=== PATIENT | female | born 1970 | race Caucasian/White ===

== ENCOUNTER 2019-07-03 05:15 | Observation (INO) ==
--- NOTE | 2019-06-24 14:45 | PAT Medication Instructions ---
Medication Instructions Date of Service June 24, 2019 Home Medications Medication Instructions Recorded cephalexin 500 mg capsule 500 mg PO TID 21 Days #63 cap 06/18/19 buprenorphine 12 mg-naloxone 3 mg sublingual film 1 ea SL DAILY venlafaxine 75 mg capsule,extended release 24 hr 75 mg PO DAILY cephalexin 500 mg capsule 500 mg PO TID Continue as directed buprenorphine 12 mg-naloxone 3 mg sublingual film 1 ea SL DAILY venlafaxine 75 mg capsule,extended release 24 hr 75 mg PO DAILY cephalexin 500 mg capsule 500 mg PO TID Other Notes If you have any questions please call us at [phone] or [phone] or [phone] or [phone]
--- NOTE | 2019-06-25 09:03 | Anesthesiology Consultation ---
Date of Service June 25, 2019 Assessment & Plan (1) Encounter for pre-operative examination: - Check test AM DOS Chart Review Chart Review: Acceptable Risk for Surgery and Patient seen in Pre Admission Te sting Teaching & Discussion Pre-Anesthesia Teaching/Discussion Notes: Instructed NPO after midnight before surgery,except medications with 15 cc of water. Medication instructions provided according to the PAT guidelines. History Surgery Operation Date: 07/03/19 07:30 Proposed Procedures p Bilateral Nipple-Sparring Breast Mastectomies with Bilateral [place] Lymph Node Biopsy - Chevy Ruiz DO s Bilateral First-Stage Immediate Breast Reconstruction with Tissue Expanders and Acellular Dermal Matrix - Radha Oliver MD Height/Weight Height: 5 ft 6 in Weight: 64.9 kg Allergies Allergy/AdvReac Type Severity Reaction Status Date / Time No Known Drug Allergies Allergy Verified 06/17/19 15:27 Medications Home Medications Medication Instructions Recorded Confirmed Last Taken buprenorphine 12 mg-naloxone 3 mg 1 ea SL DAILY 04/16/19 06/17/19 Unknown sublingual film venlafaxine 75 mg capsule,extended 75 mg PO DAILY 04/16/19 06/17/19 Unknown release 24 hr cephalexin 500 mg capsule 500 mg PO TID 21 Days #63 cap 06/18/19 06/18/19 Unknown Past Medical History Medical History Breast cancer left Depression Exercise / Class Metabolic Activity II 4-5 Yardwork/Stairs/Walk up hill (ONE FLIGHT OF STAIRS (NO CHEST PAIN/NO SOB)) Past Family History Family History Father Prostate cancer Heart disease Grandfather (Maternal) Family history of diabetes mellitus Past Surgical History Surgical History History of breast biopsy History of in vitro fertilization Past Anesthesia History No Hx of Anesthesia Complications and No Family Hx of Anesthesia Complications History of PONV No Hx of PONV and No Hx of Motion Sickness Social History Smoking Status: Never smoker Do You Dip or Chew Tobacco: No Hx Alcohol Use: Yes Alcohol type: wine alcohol intake frequency: a few times a month Hx Substance Use: Yes (on Suboxone daily) substance use type: former substance user and opiates Review of Systems Patient denies chest pain, shortness of breath, dyspnea on exertion, cough, wheezing, palpitations. Physical Exam Vital Signs VITALS BP 135/76 P 87 TEMP 98.4 SP02 100%RA RESP 16 PHYSICAL Full neck and c-spine range of motion. Full TMJ range of motion. TMD 3 finger breaths Mallampati Score 3 Dentition: missing side tooth, crown on upper front Lungs: clear throughout to auscultation Cardiac: regular rate and rhythm, no murmurs noted Spine: normal Extremities: no edema Testing Laboratory Results 06/25/19 09:37 06/25/19 09:37 PT 10.3 Seconds (9.0-12.0) 06/25/19 09:37 INR 1.0 (0.9-1.1) 06/25/19 09:37 APTT 24.8 Seconds (21.0-31.0) 06/25/19 09:37 Electrocardiogram Date: 06/25/19 Findings: + NSR @ (89)
[2019-06-25 11:10] LABS: Basophils # (auto) 0.09 K/uL (0-0.2); Eosinophils % (auto) 4.5 %; Hematocrit (blood only) 41.8 % (37-47); Immature Granulocytes # (auto) 0.01 K/uL (0.00-0.02); Immature Granulocytes % (auto) 0.2 %; Lymphocytes # (auto) 0.88 K/uL (1.2-3.4); Lymphocytes % (auto) 19.7 %; Mean Corpuscular Hgb Conc 33.5 g/dL (32-36); Mean Corpuscular Volume 95.7 fL (80-100); Mean Platelet Volume 10.6 fL (7.4-10.4); Monocytes # (auto) 0.22 K/uL (0.11-0.59); Monocytes % (auto) 4.9 %; Neutrophils # (auto) 3.07 K/uL (1.4-6.5); Neutrophils % (auto) 68.7 %; Platelet Count 234 K/uL (130-400); RDW Coefficient of Variation 12.4 % (11.5-14.5); Red Blood Count 4.37 M/uL (4.2-5.4); White Blood Count 4.47 K/uL (4.8-10.8)
[2019-06-25 11:25] LABS: Partial Thromboplastin Ratio 0.9; Partial Thromboplastin Time 24.8 Seconds (21.0-31.0); Prothrombin Time 10.3 Seconds (9.0-12.0)
[2019-06-25 11:26] LABS: BUN Creatinine Ratio 12.5 (10-20); Calcium 8.5 mg/dl (8.5-10.1); Creatinine Clr Calc Pharmacy 81.2 ml/min; Est GFR (African American) 100.9; Est GFR (Non-African American) 87.1; Potassium 4.6 mmol/L (3.5-5.1)
[2019-07-03] MEDS ORDERED: LR 15ML/HR IV SCH (06:00)
[2019-07-03] MEDS ORDERED: LR 500ML BOLUS IV SCH (06:00)
[2019-07-03] MEDS ORDERED: CEFAZOLIN 2000MG 2,000 MG/15 ML SYR IV SCH (06:00)
[2019-07-03] MEDS ORDERED: ROCURONIUM BROMIDE 10 MG/ML 5 ML VIAL ONE ×3 (06:29→11:43)
[2019-07-03] MEDS ORDERED: PROPOFOL IV EMULSION 10 MG/ML 20 ML VIAL IV ONE (06:29)
[2019-07-03] MEDS ORDERED: SUCCINYLCHOLINE 100MG/5ML SYR ONE (06:29)
[2019-07-03] MEDS ORDERED: MIDAZOLAM HCL 1 MG/ML 2ML VIAL ONE ×3 (06:30→10:02)
[2019-07-03] MEDS ORDERED: fentaNYL citrate 100 MCG/2 ML VIAL ONE (06:30)
[2019-07-03] MEDS ORDERED: BUPIVACAINE/EPINEPHRINE 0.25% 1:200,000 30 ML VIAL ONE (06:37)
[2019-07-03] MEDS ORDERED: VANCOMYCIN HCL 1000MG/20ML VIAL ONE (06:50)
--- NOTE | 2019-07-03 07:02 | History & Physical Bridge Note ---
Date of Service July 03, 2019 History & Physical Bridge Note I have examined the patient, reviewed the History & Physical and in the interval since the performance of the History & Physical I have noted the following changes of clinical significance: no changes noted
[2019-07-03] MEDS ORDERED: LIDOCAINE/EPINEPHRINE 1% 20 ML VIAL ONE (07:05)
[2019-07-03] MEDS ORDERED: BUPIVACAINE 0.25% 30 ML VIAL ONE (07:06)
[2019-07-03] MEDS ORDERED: CEFAZOLIN 250 MG/ML 1 GM VIAL ONE (07:07)
[2019-07-03] MEDS ORDERED: BACITRACIN INJ 50,000 UNIT VIAL ONE (07:07)
[2019-07-03] MEDS ORDERED: GENTAMICIN SULFATE 40 MG/ML 2 ML VIAL ONE (07:07)
[2019-07-03] MEDS ORDERED: ATROPINE SULFATE 0.1 MG/ML 10ML SYR IV PRN (07:08)
[2019-07-03] MEDS ORDERED: ONDANSETRON INJ 2 MG/ML 2 ML VIAL IV PRN ×2 (07:08→15:50)
[2019-07-03] MEDS ORDERED: HYDROmorphone INJ 2 MG/ML SYR/VIAL IV PRN (07:08)
[2019-07-03] MEDS ORDERED: ePHEDrine sulfate 50 MG/ML AMP IV PRN (07:08)
[2019-07-03] MEDS ORDERED: ISOSULFAN BLUE 10 MG/ML VIAL 5 ML ONE (07:14)
[2019-07-03] MEDS ORDERED: EpINEphrine HCL INJ 1 MG/ML 1ML SYRINGE ONE (07:15)
[2019-07-03] MEDS ORDERED: BUPIVACAINE 0.5 % 5 MG/1 ML MPF 30ML VIAL ONE (07:15)
--- NOTE | 2019-07-03 07:23 | History & Physical Report ---
Date of Service July 03, 2019 Assessment & Plan (1) Breast cancer: Again a long discussion was had regarding the upcoming procedure that we are recommending. We reviewed all the risks once again. Answered all their questions. We will proceed today with bilateral nipple sparing mastectomies and bilateral sentinel lymph node biopsies with immediate placement of tissue expanders by Dr. Oliver. History of Present Illness Primary Care Provider: NO PCP This is a 48-year-old female who was recently diagnosed with breast cancer as well as DCIS. She originally also had an abnormality on her left breast however follow-up imaging failed to reveal this so biopsy was never performed. After extensive discussions between her myself and her plastic surgeon Dr. Oliver we have decided to proceed with bilateral nipple sparing mastectomy, bilateral sentinel lymph node biopsy, and breast reconstruction with tissue expanders placed at the time of the mastectomies. Allergies Allergy/AdvReac Type Severity Reaction Status Date / Time No Known Drug Allergies Allergy Verified 07/03/19 05:41 Home Medications Home Medications Medication Instructions Recorded Confirmed Type buprenorphine 12 mg-naloxone 3 mg 1 ea SL DAILY 04/16/19 07/03/19 History sublingual film venlafaxine 75 mg capsule,extended 75 mg PO DAILY 04/16/19 07/03/19 History release 24 hr cephalexin 500 mg capsule 500 mg PO TID 21 Days #63 cap 06/18/19 07/03/19 Rx Past Med/Surg History Medical History Breast cancer left Depression Surgical History History of breast biopsy History of in vitro fertilization Family History Father Prostate cancer Heart disease Grandfather (Maternal) Family history of diabetes mellitus Social History Preferred Language: Yi Communication Ability: Effective Fuel Cell Designer Required: No Beliefs That Will Affect Care: None marital status: Current Living Situation: Spouse current occupational status: employed current occupation: assoc professor at [employer] Other Information That Helps Us Care for You: No Feels Safe at Home: Yes Safety Concerns: Feels Safe At This Time Smoking Status: Never smoker Do You Dip or Chew Tobacco: No ; Second Hand Exposure: No ; Hx Alcohol Use: Yes Alcohol type: wine Alcohol Intake Frequency: Weekly Hx Substance Use: Yes substance use type: former substance user and opiates Review of Systems All systems reviewed & are unremarkable except as noted in HPI & below Physical Exam Constitutional: WD/WN, vitals as above no acute distress and not ill appearing Eyes: PERRL, conjunctivae normal, anicteric sclerae EOM intact bilaterally ENMT: external ear and nose normal, oropharynx normal Ears: no hearing impairment Neck: trachea midline, no thyromegaly Respiratory: normal respiratory effort; no respiratory distress and does not use accessory muscles Cardiovascular: Rate/Rhythm: regular rate and regular rhythm Chest (Breasts): Additional Comments: No palpable abnormalities in either breast. Biopsy site well-healed. No sign of infection. Gastrointestinal (Abdomen): normal bowel sounds, soft, nontender, no hepatosplenomegaly Skin: no rashes, warm and dry Psychiatric: Orientation: alert, oriented x 3 and cooperative Results & Data Vital Signs (Past 12 Hours) Vital Signs Temp Pulse Resp BP Pulse Ox 07/03/19 05:46 37.1 C 105 H 18 139/78 100
[2019-07-03] MEDS ORDERED: DEXAMETHASONE SOD INJ 4 MG/ML VIAL ONE (08:10)
[2019-07-03] MEDS ORDERED: ACETAMINOPHEN 1000 MG/100 ML IV IV ONE (08:23)
[2019-07-03] MEDS ORDERED: KETAMINE HCL INJ 50 MG/ML 10 ML VIAL ONE (08:27)
--- NOTE | 2019-07-03 10:51 | Operative Report ---
PG Post Operative Report Pre & Post Diagnosis Operation Date: 07/03/19 07:30 Pre-Op Diagnosis: Breast Cancer Post-Op Diagnosis: Breast Cancer I identified the patient and participated in the time-out.: Yes Procedure Operation Date: 07/03/19 07:30 Actual Procedures p Bilateral Nipple-Sparing Breast Mastectomies with Bilateral [place] Lymph Node Biopsy(Bilateral) - DO donell Goldman Bilateral First-Stage Immediate Breast Reconstruction with Tissue Expanders and Acellular Dermal Matrix - Radha Oliver MD Surgeon Chevy Ruiz DO Statement Clerks Manager nina Miranda Estimated Blood Loss 50 Findings Consistent with Post-Op Diagnosis Specimens 1. right breast 2. left breast 3. right sentinel lymph nodes 4. left sentinel lymph nodes. Description of Procedure A day prior to the procedure the patient had been to nuclear medicine where she was injected at her bilateral nipple areolar complexes with radionucleotide. The day of the surgery the patient was identified and brought to the operating room and placed in supine position with both arms extended. After successful intubation a Scherer catheter was placed. The bilateral chest wall breast axilla upper arm and lower neck were all sterilely prepped and draped in usual fashion. I began on the noncancer side/right breast. I made a curvilinear incision as marked by Dr. Oliver just above the inframammary fold with a 10 blade scalpel. Skin flaps were created in all directions. I used cautery for the majority of my dissection. After creating a flap superiorly and inferiorly as well as medially I developed the plane between the pectoralis muscle and the breast itself leaving pectoralis fascia in place. We continued this superiorly to the clavicle. Once I detached it from the nipple areolar complex I continued to work medial to lateral until I had the entire breast out including the axillary tail. Any small bleeding points were controlled using either electrocautery, 3- 0 Vicryl stick ties or hemoclips. Once I had the entire breast removed in 1 piece I marked it such that one long stitch was lateral 2 short stitches were superior and 2 long stitches were posterior. I then thoroughly irrigated the wound. There was adequate hemostasis. Using the neoprobe device I was able to identify the right sentinel lymph node. I was not able to reach it from the inframammary incision so I therefore made a new axillary incision with a fresh blade. Wheat Dunn retractor was used to help with exposure and I continued to use traction/ countertraction and cautery to dissect down through the axilla. I was able to locate what I suspect was 2 separtate sentinel lymph nodes. I was able to use cautery and hemoclips to remove them in totality. They were in fact "hot nodes" once we removed them from the body. Once they were removed we did not identify any additional background noise. We then thoroughly irrigated both wounds and packed them with moist towels. We then changed our gloves. Our attention then turned to the left breast. We used the exact same technique. I again I used a fresh blade to create an incision just above the inframammary fold as previously marked by Dr. Oliver. Again I created skin flaps superiorly medially laterally and inferiorly. I began by dissecting medial to the medial side of the breast tissue and then developed a plane between the breast and the pectoralis muscle again leaving fascia behind. I continued to dissect medial to lateral and inferior to superior until I was up to the clavicle superiorly and the lateral margin/anterior margin of the latissimus dorsi laterally. Again once I had all the breast tissue removed in 1 piece including the axillary tail and I marked it such that one long stitch was lateral 2 short stitches were superior and 2 long stitches were posterior. Again any bleeding points were controlled using cautery and 3-0 Vicryl ties or hemoclips. Once this was completed again I was unable to reach the sentinel lymph node from the inframammary incision so I created a new left axillary incision with a fresh blade. Again a Wheat Dunn retractor was used to help exposure. Once we identified the "hot" lymph nodes we were able to excise them by hemoclipping the pedicle and removing them. Once out of the body again they were in fact the "hot" nodes. I believe again there were 2 separate nodes. There was no background noise once these were removed. Thorough irrigation of the axilla was also performed. Thorough irrigation of both incisions was performed and there was adequate hemostasis. Again both wounds were packed with wet sterile towels. This completed our portion of the procedure. Please see Dr. Oliver's dictation from here going forward. My physician clinical project assistant was present for the entire case. He helped prep the patient. He was instrumental in retraction and exposure for my dissection. I attest to the content of the Intraoperative Record and any orders documented therein. Any exceptions are noted below.
[2019-07-03] MEDS ORDERED: GLYCOPYRROLATE 0.2 MG/ML VIAL ONE (12:47)
[2019-07-03] MEDS ORDERED: HYDROmorphone INJ 2 MG/ML SYR/VIAL ONE (12:47)
[2019-07-03] MEDS ORDERED: NEOSTIGMINE METHYLSULFATE 5 MG/5 ML SYR ONE (12:47)
[2019-07-03] MEDS ORDERED: ONDANSETRON INJ 2 MG/ML 2 ML VIAL ONE (12:47)
--- NOTE | 2019-07-03 13:52 | Post Operative Brief Note ---
Immediate Post Op Note v1 Date of Surgery July 03, 2019 Pre & Post Diagnosis Operation Date: 07/03/19 07:30 Pre-Op Diagnosis: Breast Cancer Post-Op Diagnosis: Breast Cancer I identified the patient and participated in the time-out.: Yes Procedure Operation Date: 07/03/19 07:30 Actual Procedures p Bilateral Nipple-Sparing Breast Mastectomies with Bilateral [place] Lymph Node Biopsy(Bilateral) - DO donell Goldman Bilateral First-Stage Immediate Breast Reconstruction with Tissue Expanders and Acellular Dermal Matrix(Bilateral) - Radha Oliver MD Surgeon Radha Oliver MD Hand Driller Sharifa Arenas pa-c Estimated Blood Loss 15 Findings Consistent with Post-Op Diagnosis Specimens additional right breast tissue to pathology Drains Scherer Catheter and Zackery-De Jesus Drain (15french round x 2) Anesthesia Type General Complications none Disposition Disposition: Recovery Room
[2019-07-03] MEDS ORDERED: ACETAMINOPHEN 65 ML IV PRN (14:01)
--- NOTE | 2019-07-03 14:23 | Operative Report ---
PG Post Operative Report Pre & Post Diagnosis Operation Date: 07/03/19 07:30 Pre-Op Diagnosis: Breast Cancer Post-Op Diagnosis: Breast Cancer I identified the patient and participated in the time-out.: Yes Procedure Operation Date: 07/03/19 07:30 Actual Procedures p Bilateral Nipple-Sparing Breast Mastectomies with Bilateral [place] Lymph Node Biopsy(Bilateral) - DO donell Goldman Bilateral First-Stage Immediate Breast Reconstruction with Tissue Expanders and Acellular Dermal Matrix(Bilateral) - Radha Oliver MD Surgeon Radha Oliver MD Large Engine Assembler Sharifa Arenas pa-c Estimated Blood Loss 15 Findings Consistent with Post-Op Diagnosis Specimens additional right breast tissue to pathology Drains [id number] Anesthesia Type General Complications none Disposition Disposition: Recovery Room Indications left breast CA, requiring bilateral mastectomy and desiring immediate breast reconstruction Description of Procedure I began with the right side. Hemostasis was achieved with electrocautery. Pectoralis major muscle was then identified and elevated via the inframammary incision. Inferior attachments of pectoralis major muscle were divided along the ribs medially to the sternum. None of the sternal attachments were dissected. The retropectoral plane was then developed using electrocautery. Hemostasis was achieved using cautery. Once adequate dissection had been performed, I then chose a piece of medium contour thick AlloDerm which was then used to create a sling for the lower pole. This was first sutured to the inframammary fold using 2-0 Vicryl U stitches. Pocket was then measured and base diameter was 11 cm. Therefore, I selected a 11 cm Allergan style smooth 133 SMVT tissue business continuity global director with fill volume 250 mL. The business continuity global director was prepared and air was aspirated out. The business continuity global director was soaked in antibiotic irrigation and antibiotic irrigation was used to irrigate the pocket. All instruments were wiped down and gloves were changed. Mobile Home Set Up Person was placed along the inframammary fold as medially as possible. Suture tabs were sutured down to underlying periosteum using a 2-0 Vicryl suture. The remainder of the business continuity global director was then enclosed using 2-0 Vicryl running suture to reapproximate the AlloDerm which had been trimmed to size and this was approximated to the pectoralis major muscle. Laterally, this was closed down using 2-0 Vicryl interrupted sutures as well. A 15-Khmer Tor drain was placed in the wound and brought out through a separate stab incision. Wound was reapproximated using 2-0 Vicryl deep dermal suture, 3-0 PDS superficial dermal suture and 3-0 Monocryl running subcuticular suture. The fill port was identified using the magnifinder and accessed using a Fourte needle. A total of 200 mL were placed prior to closure. Drain was sutured in place using 3-0 nylon. Dermabond Prineo was applied. I also performed closure of both axillary lymph node biopsy sites using 2-0 Vicryl deep dermal sutures, 3-0 PDS interrupted superficial dermal sutures, 3-0 monocryl running subcuticular suture, followed by application of dermabond. An identical procedure was performed on the left side. The drain site was dressed using Acticoat 7, dry dressing and Tegaderm. Dry dressings were placed over the incision. Procedure was tolerated well. Sharifa Arenas PA-C was present and scrubbed throughout the entire procedure and was instrumental in providing exposure during elevation of pectoralis muscle and suturing of the AlloDerm as well as filling expanders and assisting in wound closure. I attest to the content of the Intraoperative Record and any orders documented therein. Any exceptions are noted below.
[2019-07-03] MEDS ORDERED: HYDROmorphone INJ 1 MG/ML SYRINGE ONE (14:48)
--- NOTE | 2019-07-03 14:55 | Anesthesiology Progress Note ---
Date of Service July 03, 2019 Anesthesia Post Procedure Vital Signs Vital Signs: Temp Pulse Pulse Resp BP Pulse Ox 07/03/19 14:41 36.8 C 88 17 107/63 99 07/03/19 14:30 76 16 103/57 L 98 07/03/19 14:20 83 19 99/59 L 100 07/03/19 14:10 86 14 103/51 L 100 07/03/19 14:04 36.8 C 101 H 14 105/64 100 07/03/19 05:46 37.1 C 105 H 18 139/78 100 Transfer of Care Handoff Completed per policy Notes Mental Status: alert / awake / arousable Patient Amnestic to Procedure: Yes Nausea / Vomiting: adequately controlled Pain: adequately controlled Airway Patency, RR, SpO2: stable & adequate BP & HR: stable & adequate Hydration State: stable & adequate Anesthetic Complications: no major complications apparent
[2019-07-03] MEDS ORDERED: DiphenhydrAMINE HCL 50 MG/ML VIAL IV PRN (15:50)
[2019-07-03] MEDS ORDERED: PROMETHAZINE HCL 12.5 MG in SODIUM CHLORIDE 0.9% 50 ML IV PRN (15:50)
[2019-07-03] MEDS ORDERED: MoRPHine SULFATE 10 MG/ML CARP/VIAL IV PRN (15:50)
[2019-07-03] MEDS ORDERED: OXAZEPAM 10 MG CAPSULE PO PRN (15:50)
[2019-07-03] MEDS ORDERED: ACETAMINOPHEN 325 MG TAB PO PRN (15:50)
[2019-07-03] MEDS ORDERED: MoRPHine SULFATE 2 MG/ML CARP IV PRN (15:50)
[2019-07-03] MEDS: MoRPHine SULFATE 4 MG/ML 1 ML CARP\\VIAL IV PRN (16:34)
[2019-07-03] MEDS: D5W AND 1/2NSS + 20MEQ KCL 20 MEQ/1,000 ML BAG IV SCH (16:59)
[2019-07-03] MEDS: OXYCODONE/ACETAMINOPHEN 10-325 TAB PO PRN ×2 (18:17→22:27)
[2019-07-03] MEDS: CEFAZOLIN 2000MG 2,000 MG/15 ML SYR IV SCH (19:26)
[2019-07-03] MEDS ORDERED: COUGH DROP (SUGAR FREE) LOZ 24 LOZ/1 BOX BUCCAL ONE (19:35)
[2019-07-04] MEDS: CEFAZOLIN 2000MG 2,000 MG/15 ML SYR IV SCH (02:26)
[2019-07-04] MEDS: MoRPHine SULFATE 4 MG/ML 1 ML CARP\\VIAL IV PRN (02:30)
[2019-07-04 04:04] VITALS: TEMP 98.4
[2019-07-04] MEDS: OXYCODONE/ACETAMINOPHEN 10-325 TAB PO PRN (06:16)
[2019-07-04] MEDS: D5W AND 1/2NSS + 20MEQ KCL 20 MEQ/1,000 ML BAG IV SCH (06:25)
[2019-07-04 07:18] VITALS: BP 122/74; O2SAT 99
--- NOTE | 2019-07-04 08:06 | Surgery Progress Note ---
Date of Service July 04, 2019 Assessment & Plan (1) H/O mastectomy: doing well/as expected ok from my standpoint for d/c later today/tomorrow when ok with Dr. Oliver. (2) Breast cancer: Subjective pt seen. doing well. "sore" but otherwise no major complaints. Physical Exam Physical Exam: alert. nad no respiratory distress. dressings in place. Results & Data Vital Signs (Past 12 Hours) Vital Signs Temp Pulse Pulse Resp BP Pulse Ox 07/04/19 07:17 36.9 C 83 18 122/74 99 07/04/19 04:03 36.9 C 81 16 134/81 100 07/03/19 23:11 37.1 C 92 H 16 126/74 98 PG Care Time/CCT Total # of Minutes Spent Total Time Spent with Patient: Total time spent is greater than 50% in coordination of care (as documented) at patient's floor/unit and/or counseling patient:
--- NOTE | 2019-07-04 08:11 | Surgery Progress Note ---
Date of Service July 04, 2019 Assessment & Plan (1) Breast cancer: (2) H/O mastectomy: s/p bilateral nipple sparing mastectomy with immediate reconstruction using tissue expanders and acellular dermal matrix 1. doing well. OK to d/c home today. F/U in office tomorrow Subjective Patient resting comfortably with good pain control. She admits to feeling sore, but pain is controlled. She denies any nausea and is tolerating a regular diet. Physical Exam Constitutional: WD/WN, vitals as above no acute distress Skin: + incision (CDI, nipples/flap viable) drains with serosang output Results & Data Vital Signs (Past 12 Hours) Vital Signs Temp Pulse Pulse Resp BP Pulse Ox 07/04/19 07:17 36.9 C 83 18 122/74 99 07/04/19 04:03 36.9 C 81 16 134/81 100 07/03/19 23:11 37.1 C 92 H 16 126/74 98 PG Care Time/CCT Total # of Minutes Spent Total Time Spent with Patient: Total time spent is greater than 50% in coordination of care (as documented) at patient's floor/unit and/or counseling patient:
[2019-07-04] MEDS ORDERED: BUPRENORPHINE/NALOXONE 8/2 MG TAB SL SCH (09:00)
[2019-07-04] MEDS ORDERED: VENLAFAXINE HCL XR 75 MG CAPXR PO SCH (09:00)
[2019-07-04] MEDS ORDERED: MULTIVITAMIN TAB PO SCH (09:00)
[2019-07-04 09:57] VITALS: PULSE 81
--- NOTE | 2019-07-04 13:46 | Discharge Summary ---
Date of Service July 04, 2019 Admission HPI Per Admitting Provider This is a 48-year-old female who was recently diagnosed with breast cancer as well as DCIS. She originally also had an abnormality on her left breast however follow-up imaging failed to reveal this so biopsy was never performed. After extensive discussions between her myself and her plastic surgeon Dr. Oliver we have decided to proceed with bilateral nipple sparing mastectomy, bilateral sentinel lymph node biopsy, and breast reconstruction with tissue expanders placed at the time of the mastectomies. Admission Exam Per Admitting Provider see admission H&P Principal Diagnosis left breast cancer Discharge Exam Constitutional WD/WN, vitals as above no acute distress Skin + incision (CDI, nipples/flap viable) Discharge Data Allergies Allergy/AdvReac Type Severity Reaction Status Date / Time No Known Drug Allergies Allergy Verified 07/03/19 05:41 Procedures Performed Operation Date: 07/03/19 07:30 Actual Procedures p Bilateral Nipple-Sparing Breast Mastectomies with Bilateral [place] Lymph Node Biopsy(Bilateral) - Chevy Ruiz, DO s Bilateral First-Stage Immediate Breast Reconstruction with Tissue Expanders and Acellular Dermal Matrix(Bilateral) - Radha Oliver MD Ordered Studies 07/03/19 06:25 US - OR guided needle placemen Routine Hospital Course (1) Breast cancer: (2) H/O mastectomy: Patient [facility] with history of breast cancer. She was taken to the OR and underwent bilateral nipple sparing mastectomy by Dr. Ruiz with immediate breast reconstruction using tissue expanders and acellular dermal matrix with Dr. Oliver. There were no intraoperative complications. She was taken to recovery and transferred to med/surg for observation. On POD#1, she was feeling well. She was tolerating a regular diet and ambulating. On exam, her vitals were stable. Her incisions were CDI. Her drains had appropriate output. She was discharged home with instructions to follow-up in the office in one day. Total Time Total Time Spent Total Time Spent (In Minutes): 15 Total Time Includes: Examination of the Patient, Discharge Planning, Medication Reconciliation and Communication With Other Providers Discharge Plan Discharge Items Patient Disposition: Home - Self-Care Reason For Visit: Breast Cancer Discharge Diagnosis: s/p bilateral nipple sparing mastectomy with immediate reconstuction Activity: As commented below Non-emergency contact: Surgeon Call non-emergency contact if: you have any medication questions, your pain is not controlled, your wound has increased redness and your wound has increased drainage Follow-up/Referrals: Sharifa Arenas PA-C [Physician [employer]] - PCP,NO [Primary Care Provider] - Diet: Regular Addtl Attending Provider Instructions: ACTIVITY RECOMMENDATIONS: __Normal activities _x_No bending, lifting or straining. Limit raising arms to shoulder height __No driving __Driving allowed when you are off pain medications _x_Walking permitted __You should have help at home for ___ days DRESSINGS: __No dressings required _x_Keep dressings dry/in place until first office visit __Remove dressings ___ and leave dressings off __Apply ice ___ days __Remove dressings and reapply garment __Apply antibiotic ointment (Bacitracin, Neosporin, etc) to wounds 3-4 times/day for 10 days BATHING: x__Keep dressings dry _x_Sponge bathing permitted __Showering permitted _x_No swimming, hot tubs or soaking in a tub. No showering until drains are removed MEDICATIONS: Resume previous medications unless instructed otherwise by your surgeon. _x_Do not use aspirin, Motrin, Advil or Ibuprofen as these may promote bleeding. Please use Tylenol. _x_Prescription(s) provided: antibiotics prescribed at your last office visit- begin today. You must be on antibiotics while drains are in- call if refill is needed. Prescription for pain medication provided today OTHER INSTRUCTIONS: _x_Record drain output 2-3 times per day. Drains are ready to be removed when output is 10cc/24 hours SPECIAL CARE INSTRUCTIONS: * It is normal to have a mild fever after surgery. If your temperature is higher than 101.5 degrees F, please call the office at [phone]. * Constipation is a typical side effect of pain medication. An tgzj-ftv-hdeffce stool softener will help relieve this. * Leaking around surgical drains may occur and should not cause concern. Sometimes these drains become clogged. If this happens, remove the bulb and milk the clot out of the tube, then replace the bulb. * Drainage from wounds after liposuction is normal and should be expected. Garments will become soiled. You should protect furniture and bedding. This drainage should mostly subside within 2-3 days. Leave garments in place unless instructed to remove them. * If you have unusual drainage from a wound or are concerned you have an infection or have any questions or concerns, please call the office at [phone]. FOLLOW UP VISIT: If not already scheduled, please call the office, , when you return home after surgery to schedule an appointment to be seen in _1__ days. Pending Studies at Discharge: Yes Studies:: pathology Stand-Alone Forms: [facility], [facility], Smoking Cessation Medications and DC Order Prescriptions: New oxycodone-acetaminophen 10-325 mg tablet 1 tab PO Q4H Qty: 18 RF: 0 Continued venlafaxine [Effexor XR] 75 mg capsule,extended release 24hr 75 mg PO DAILY RF: 0 buprenorphine-naloxone [Suboxone] 12-3 mg film 1 ea SL DAILY RF: 0 cephalexin [Keflex] 500 mg capsule 500 mg PO TID 21 Days Qty: 63 RF: 0 Discharge Orders: Discharge Order (Routine); Ordered 07/04/19 Ordered By: Sharifa Barrera/Other Patient Handouts: Tube Zackery De Jesus Drainage Care Admission Data Admit Date/Time: 07/03/19 14:07 Attending Provider: Radha Oliver Admit Provider: Radha Oliver Primary Care Provider: PCP,NO Other Providers: Radha Oliver Other Interventions: Discharge Summary Assessment (RN) Last Done: 07/04/19 09:55 DC Date/Time DO NOT enter until pt leaves facility: 07/04/19 11:53
== END 2019-07-04 11:53 | disposition home or self-care (01) ==
LOC: 3W 05:15 → ASU 05:15